=== PATIENT | female | born 1965 | race Caucasian/White ===

== ENCOUNTER 2018-06-23 16:26 | Emergency (ER) | payer OTHER ==
[~2018-06-23] VITALS: Ht 170.1 cm; Wt 101.2 kg
[~2018-06-23 16:26] MED LIST: ASPIRIN81 M1 PO; FLEXERIL10 MG PO; LEXAPRO20 MG PO; MOTRIN800 MG PO; VICODIN 5/500 505 MG PO
[2018-06-23] MEDS ORDERED: ANAPROX DS550 MG PO (17:27)
== END 2018-06-23 17:39 | disposition home or self-care (01) ==
LOC: ED 16:26
DX: M25.512 Pain in left shoulder (principal); G89.29 Other chronic pain; E11.9 Type 2 diabetes mellitus without complications; F17.200 Nicotine dependence, unspecified, uncomplicated; Z79.899 Other long term (current) drug therapy; Z79.82 Long term (current) use of aspirin; X50.9XXA Other and unspecified overexertion or strenuous movements or postures, initial encounter; Y93.89 Activity, other specified; Y92.89 Other specified places as the place of occurrence of the external cause; Y99.8 Other external cause status

== ENCOUNTER 2023-02-19 20:58 | Emergency (ER) | payer OTHER ==
[~2023-02-19] VITALS: Ht 170.1 cm; Wt 99.8 kg
[~2023-02-19 20:58] MED LIST changes: +ANAPROX DS550 MG PO; +METHOCARBAMOL750 M1 PO; +NAPROXEN250 MG PO
[2023-02-19] MEDS ORDERED: LISINOPRIL-HCT1 EACH PO (21:37)
[2023-02-19] MEDS ORDERED: METFORMIN XR500 MG PO (21:39)
[2023-02-19 21:48] LABS: BASO % 0.1 % (0.0-1.0); HEMATOCRIT 31.3 % (37.0-47.0); LYMPH # 1.1 10*3/uL (1.3-4.4); MEAN CELL VOLUME 90.5 fl (81.0-99.0); MEAN CORPUSCULAR HGB 32.1 pg (27.0-31.0); MEAN CORPUSCULAR HGB CONC 35.5 g/dl (33.0-37.0); MEAN PLATELET VOLUME 11.2 fl (9.6-12.3); MONO # 0.6 10*3/uL (0.1-1.0); MONO % 5.9 % (3.0-9.0); NEUT # 7.7 10*3/uL (2.3-7.9); NEUT % 81.4 % (47.0-73.0); PLATELET COUNT AUTOMATED 117 10*3/uL (130-400); RED BLOOD COUNT 3.46 10*6/uL (4.10-5.10); RED CELL DISTRI WIDTH 14.3 % (0-14.5); WHITE BLOOD COUNT 9.5 10*3/uL (4.8-10.8)
[2023-02-19 22:04] LABS: POTASSIUM 3.4 mmol/L (3.4-5.1); TOTAL PROTEIN 7.2 gm/dL (6.0-8.0)
[2023-02-20 04:33] LABS: CHLORIDE 104 mmol/L (98-107)
[2023-02-20 04:34] LABS: BUN 32 mg/dl (9-23)
[2023-02-20 05:25] LABS: BILIRUBIN Negative (Negative); BLOOD Negative (Negative); CLARITY Clear (Clear); COLOR Yellow (Yellow); GLUCOSE 2+ (Negative); KETONE Negative (Negative); LEUKO ESTERASE Negative (Negative); NITRITE Positive (Negative); SPECIFIC GRAVITY >= 1.030 (1.001-1.030)
[2023-02-20 05:40] LABS: BACTERIA 4+
[2023-02-20 09:14] LABS: BASO % 0.2 % (0.0-1.0); HEMATOCRIT 31.4 % (37.0-47.0); LYMPH # 0.9 10*3/uL (1.3-4.4); LYMPH % 4.8 % (27.0-41.0); MEAN CELL VOLUME 90.5 fl (81.0-99.0); MEAN CORPUSCULAR HGB 32.3 pg (27.0-31.0); MEAN CORPUSCULAR HGB CONC 35.7 g/dl (33.0-37.0); MEAN PLATELET VOLUME 10.4 fl (9.6-12.3); MONO # 1.1 10*3/uL (0.1-1.0); MONO % 5.7 % (3.0-9.0); NEUT # 16.6 10*3/uL (2.3-7.9); NEUT % 88.9 % (47.0-73.0); PLATELET COUNT AUTOMATED 114 10*3/uL (130-400); RED BLOOD COUNT 3.47 10*6/uL (4.10-5.10); RED CELL DISTRI WIDTH 14.3 % (0-14.5); WHITE BLOOD COUNT 18.7 10*3/uL (4.8-10.8)
[2023-02-20 09:15] LABS: VENOUS PH 7.414 (7.37-7.45)
[2023-02-20 09:51] LABS: ALKALINE PHOSPHATASE 156 U/L (46-116); BUN 29 mg/dl (9-23); CHLORIDE 105 mmol/L (98-107); POTASSIUM 3.3 mmol/L (3.4-5.1); SGPT/ALT 17 U/L (10-49); TOTAL PROTEIN 7.1 gm/dL (6.0-8.0)
[2023-02-20 21:14] LABS: BASO % 0.1 % (0.0-1.0); HEMATOCRIT 29.2 % (37.0-47.0); LYMPH # 1.7 10*3/uL (1.3-4.4); LYMPH % 10.7 % (27.0-41.0); MEAN CORPUSCULAR HGB 30.9 pg (27.0-31.0); MEAN CORPUSCULAR HGB CONC 32.5 g/dl (33.0-37.0); MEAN PLATELET VOLUME 11.3 fl (9.6-12.3); MONO % 6.2 % (3.0-9.0); NEUT # 13.1 10*3/uL (2.3-7.9); NEUT % 82.3 % (47.0-73.0); RED BLOOD COUNT 3.07 10*6/uL (4.10-5.10); RED CELL DISTRI WIDTH 14.8 % (0-14.5)
[2023-02-20 21:15] LABS: MEAN CELL VOLUME 95.1 fl (81.0-99.0); PLATELET COUNT AUTOMATED 99 10*3/uL (130-400)
[2023-02-20 21:26] LABS: BUN 24 mg/dl (9-23); CHLORIDE 110 mmol/L (98-107); POTASSIUM 3.9 mmol/L (3.4-5.1)
== END 2023-02-21 08:32 | disposition short-term general hospital (02) ==
LOC: ED 20:58
PROVIDERS: Family Medicine; Internal Medicine
DX: R41.82 Altered mental status, unspecified (principal); Z90.710 Acquired absence of both cervix and uterus; Z20.822 Contact with and (suspected) exposure to COVID-19

== ENCOUNTER 2024-05-21 11:31 | Emergency (ER) | payer OTHER ==
[~2024-05-21] VITALS: Ht 167.6 cm; Wt 92.5 kg
[~2024-05-21 11:31] MED LIST changes: +LISINOPRIL-HCT1 EACH PO; +METFORMIN XR500 MG PO
[2024-05-21] MEDS ORDERED: METHOCARBAMOL500 M1 PO (12:03)
[2024-05-21] MEDS ORDERED: CIPROFLOXACIN500 M4 PO (12:03)
[2024-05-21] MEDS ORDERED: Albuterol Sulfate 2.5 MG/3 ML VIAL NEB ONE (12:15)
[2024-05-21] MEDS ORDERED: SODIUM CHLORIDE 0.9% 1,000 ML IV ONE ×3 (12:15→13:45)
[2024-05-21 12:39] LABS: BASO % 0.4 % (0.0-1.0); EOS # 0.6 10*3/uL (0.0-0.4); EOS % 5.8 % (1.0-4.0); HEMATOCRIT 38.9 % (37.0-47.0); MEAN CORPUSCULAR HGB 25.8 pg (27.0-31.0); MEAN CORPUSCULAR HGB CONC 31.9 g/dl (33.0-37.0); MEAN PLATELET VOLUME 9.9 fl (9.6-12.3); MONO # 1.1 10*3/uL (0.1-1.0); MONO % 10.7 % (3.0-9.0); NEUT # 6.6 10*3/uL (2.3-7.9); NEUT % 62.4 % (47.0-73.0); PLATELET COUNT AUTOMATED 346 10*3/uL (130-400); RED CELL DISTRI WIDTH 19.5 % (0-14.5); WHITE BLOOD COUNT 10.5 10*3/uL (4.8-10.8)
[2024-05-21 12:59] LABS: BUN 12 mg/dl (9-23); CHLORIDE 101 mmol/L (98-107); POTASSIUM 3.4 mmol/L (3.4-5.1)
[2024-05-21] MEDS ORDERED: LEVOFLOXACIN750 M2 PO (13:56)
[2024-05-21] MEDS ORDERED: LEVOFLOXACIN 50 ML IV ONE (14:00)
[2024-05-21] MEDS ORDERED: LEVOFLOXACIN 100 ML IV ONE (14:30)
== END 2024-05-21 15:34 | disposition home or self-care (01) ==
LOC: ED 11:31
PROVIDERS: Emergency Medicine
DX: J18.9 Pneumonia, unspecified organism (principal); Z20.822 Contact with and (suspected) exposure to COVID-19; E11.9 Type 2 diabetes mellitus without complications; I10 Essential (primary) hypertension; E78.5 Hyperlipidemia, unspecified; Z98.890 Other specified postprocedural states; Z90.710 Acquired absence of both cervix and uterus